=== PATIENT | male | born 1955 | race Caucasian/White ===

== ENCOUNTER → 2017-01-05 | Outpatient (CLI) | payer OTHER | LOC: FIMAGING 17:18 | PROVIDERS: ATTEND Family Medicine | DX: I25.10 Atherosclerotic heart disease of native coronary artery without angina pectoris (principal); I10 Essential (primary) hypertension; Z01.818 Encounter for other preprocedural examination ==

== ENCOUNTER → 2017-04-06 | Outpatient (CLI) | payer OTHER | LOC: FCPNEURO 21:30 | PROVIDERS: ATTEND Student in an Organized Health Care Education/Training Program | DX: G47.33 Obstructive sleep apnea (adult) (pediatric) (principal) ==

== ENCOUNTER → 2017-05-13 | Outpatient (CLI) | payer OTHER | LOC: FCPNEURO 21:00 | PROVIDERS: ATTEND Student in an Organized Health Care Education/Training Program | DX: G47.33 Obstructive sleep apnea (adult) (pediatric) (principal); G47.39 Other sleep apnea ==

== ENCOUNTER 2018-06-02 19:39 | Emergency (ER) | payer SELFPAY ==
--- NOTE | 2018-06-02 20:06 | EDPHY ---
H & P Time Seen by Provider: 06/02/18 19:57 HPI/ROS: CHIEF COMPLAINT: Right thumb skin avulsion HISTORY OF PRESENT ILLNESS: 63-year-old male with up-to-date tetanus sustained accidental skin avulsion right thumb dorsal aspect of the IP joint of her earlier today. He is on Eliquis secondary to atrial fibrillation history. He notes slow bleeding throughout the day. PRIMARY CARE PROVIDER: REVIEW OF SYSTEMS: 10 systems reviewed and are negative with exception of illness mentioned in the history of present illness PHYSICAL EXAM (Prior to examination, patient consented to physical exam, hands were washed and my usual and customary physical exam procedures followed) 1) GENERAL: Well-developed, well-nourished, alert and oriented. Appears to be in no acute distress. 2) HEAD: Normocephalic 3) HEENT: sclera anicteric 4) LUNGS: Breathing comfortably. 5) SKIN: Right thumb dorsal aspect at the IP joint 1 cm x 1 cm superficial skin avulsion with slow bleed. No signs of infection. Smoking Status: Never smoked Constitutional: Initial Vital Signs Temperature (C) 37.0 C 06/02/18 19:42 Heart Rate 62 06/02/18 19:42 Respiratory Rate 20 06/02/18 19:42 Blood Pressure 156/92 H 06/02/18 19:42 O2 Sat (%) 96 06/02/18 19:42 O2 Delivery Mode Room Air Allergies/Adverse Reactions: salicylates Allergy (Verified 06/02/18 19:41) Sulfa (Sulfonamide Antibiotics) Allergy (Verified 06/02/18 19:41) Home Medications: Medication Instructions Recorded Amiloride 06/02/18 Amlodipine Besylate 06/02/18 Apixaban [Eliquis] 06/02/18 Bystolic 06/02/18 Effient 10mg (*) 06/02/18 Lipitor 06/02/18 Gramling Aspartate [Lithate] 06/02/18 Wellbutrin 100mg (*) 06/02/18 MDM/Departure - MDM Procedures: The patient's skin avulsion was dressed with Surgicel dressing resulting in hemostasis. Dressed by ER staff. Patient tolerated procedure well. No signs of infection. Given usual customary wound precautions and instructions. Care of patient under supervision of secondary supervising physician Dr Leroy . - Depart Disposition: Home, Routine, Self-Care Clinical Impression: Avulsion of skin of finger Qualifiers: Encounter type: initial encounter Qualified Code(s): S61.209A - Unspecified open wound of unspecified finger without damage to nail, initial encounter Condition: Good Instructions: Skin Avulsion (ED) Referrals: BEE MORALES [Primary Care Provider] - 1-2 days without fail
[2018-06-02 20:32] VITALS: BP 137/86
== END 2018-06-02 20:35 | disposition home or self-care (01) ==
DX: S61.031A Puncture wound without foreign body of right thumb without damage to nail, initial encounter (principal); I48.91 Unspecified atrial fibrillation; X58.XXXA Exposure to other specified factors, initial encounter; Y92.9 Unspecified place or not applicable; Y99.9 Unspecified external cause status; Y93.9 Activity, unspecified; Z79.01 Long term (current) use of anticoagulants